=== PATIENT | female | born 1940 | race Caucasian/White ===

== ENCOUNTER 2019-11-22 19:08 | Emergency (ER) | payer MEDICAID ==
[~2019-11-22] VITALS: Ht 157.5 cm; Wt 68.5 kg
[2019-11-22 20:00] VITALS: Ht 157.5 cm; Wt 68.5 kg
[2019-11-23 01:36] VITALS: BP 139/63
== END 2019-11-23 01:36 | disposition home or self-care (01) ==
LOC: ED 19:08
DX: M54.2 Cervicalgia (principal); M79.602 Pain in left arm; I10 Essential (primary) hypertension; E11.9 Type 2 diabetes mellitus without complications; W18.30XA Fall on same level, unspecified, initial encounter; Y93.89 Activity, other specified; Y92.89 Other specified places as the place of occurrence of the external cause; Y99.8 Other external cause status
CPT/HCPCS: Q0092; Q0162